=== PATIENT | female | born 1975 | race African-American/Black ===

== ENCOUNTER 2019-05-19 06:18 | Emergency (ER) | payer MEDICAID, SELFPAY ==
[2019-05-19 06:19] VITALS: BP 110/83; PULSE 90; RESP 18; TEMP 36.7; O2SAT 100; BMI 24.2
--- NOTE | 2019-05-19 06:34 | RAD_ITS ---
STUDY: X-RAY - LEFT FOOT CLINICAL: Female, 43 years old. FELL -- C/O PAIN IN ALL TOES TECHNIQUE: 3 view(s) of the foot. COMPARISON: None. FINDINGS: Normal talus, calcaneus, and tarsal bones. Normal visualized subtalar, talonavicular, calcaneocuboid, tarsal and tarsometatarsal articulations. Normal metatarsi. Normal metatarsophalangeal joint of the great toe. Normal tibial and fibular sesamoid bones. Normal interphalangeal joint of the great toe. Normal phalanges of the great toe. Normal second through fifth metatarsophalangeal joints. Normal interphalangeal joints and phalanges of the lesser toes. The soft tissue structures are unremarkable. RAD/Foot min 3 Views IMPRESSION: Normal x-ray examination of the foot. Electronically Signed: Sofía Chang, at 7:18 EDT Tel , Service support ,
--- NOTE | 2019-05-19 06:36 | ED.VIS.LOWEX ---
History of Present Illness Chief Complaint: Lower Extremity Injury Informant: Patient Occurred: Hours - 1 Mechanism/Context: Slip Context: Gradual Onset - a little after the slip/near-fall Timing: Continuous Quality of Pain: Aching Location: left foot Current Severity: Mild Maximum Severity: Moderate Worsened by: walking, although she is able Relieved by: rest/remaining still Associated Symptoms: Negative for: Parasthesia, Weakness, Loss of Funtion Narrative: Slipped on wet grass and then caught herself, when she got to the sidewalk a short time later she noticed that her left foot was hurting. No other injuries. Denies twisting her ankle or having pain there. She states her right foot is bothering her a little but it is more stiff and not necessarily painful. She has been able to ambulate since this injury. Past Medical History - Allergies and Home Meds Allergies/Adverse Reactions: Allergies No Known Allergies Allergy (Verified 05/19/19 06:24) Primary Care Physician: NOT,DEFINED [NON-STAFF] - Past Medical History: None Smoking Status: Current every day smoker Review of Systems Musculoskeletal: Reports: Extremity Pain. Denies: Swelling Skin: Denies: Rash, Wounds Neurological: Denies: Headache, Weakness, Numbness Physical Exam Vital Signs/Narrative: Vital Signs Temp Pulse Resp BP Pulse Ox 05/19/19 06:19 98.1 F 90 18 110/83 H 100 Inital Vital Signs reviewed: Yes - Extremity Exam Left Hip: Negative for: Limited ROM Left Knee: Negative for: Limited ROM Left Ankle: Negative for: Limited ROM - and NT Left Foot: - - tender throughout most of midfoot and metatarsals, mildly. nontender 5th ray. toes nontender. calc NT.. Negative for: Contusion, Deformity, Edema, Hematoma Right Toe: - - NT throughout. Negative for: Contusion, Deformity, Edema, Hematoma General: Well nourished, Well developed, - - Well-appearing, NAD Skin: Normal color, No rash, No Trauma Neurological: Alert, Oriented x3, Cranial nerves II-XII grossly intact, Normal Strength, Normal Sensation Psychological: Normal affect, Normal Mood Diagnostic/Tx/Re-eval - Medical Decision Making On my interpretation, 3 view x-ray of the left foot shows no acute fracture or dislocation. Given this, and the benign symptoms/exam on the right foot, I do not think x-rays of it are necessary. I discussed this with the patient and she was okay with that as well. She was given ibuprofen and appropriate discharge instructions, for supportive care and follow-up. Prior to discharge, she was asking about some type of chronic cyst issue she was having on her left foot, I do not see anything unusual, but she was given information for podiatry that she could follow-up with if desired. She was okay with that information. ED Disposition - Plan for ED Patient: Disposition: Home or Assisted Living Diagnosis: Injury of left foot Instructions: Sprain Foot Referrals: Judie Fang DPM [STAFF PHYSICIAN] - As Needed Additional Instructions: Ibuprofen, ice, and/or Tylenol as needed for pain.
[2019-05-19] MEDS: Ibuprofen 600 MG Tablet PO (07:10)
[2019-05-19 07:12] VITALS: BP 110/83; PULSE 90; RESP 18
== END 2019-05-19 07:14 | disposition home or self-care (01) ==
PROVIDERS: Emergency Provider Emergency Medicine
DX: S99.922A Unspecified injury of left foot, initial encounter (principal); W01.0XXA Fall on same level from slipping, tripping and stumbling without subsequent striking against object, initial encounter; Y93.9 Activity, unspecified; Y92.9 Unspecified place or not applicable; F17.200 Nicotine dependence, unspecified, uncomplicated
CPT/HCPCS: 73630; 99283; J7030; A4216

== ENCOUNTER 2020-05-28 04:35 | Emergency (ER) | payer MEDICAID, SELFPAY ==
[2020-05-28 04:36] VITALS: BP 116/88; PULSE 73; RESP 16; TEMP 36.5; O2SAT 100; BMI 26.7
--- NOTE | 2020-05-28 04:55 | RAD_ITS ---
STUDY: X-RAY - LEFT KNEE REASON FOR EXAM: Female, 44 years old. Patella pain post fall TECHNIQUE: 3 view(s) of the knee. COMPARISON: None. FINDINGS: Normal visualized distal femur. Normal visualized proximal tibia and fibula. Normal proximal tibiofibular articulation. There is mild degenerative arthrosis of the medial femorotibial compartment. Normal lateral femorotibial compartment. Normal patellofemoral articulation. There is no demonstrated joint effusion. Mild thickening of the medial distal femoral and knee joint soft tissue. RAD/Knee 3 Views IMPRESSION: Mild degenerative changes medial femoral tibial joint with joint space narrowing. There is no acute displaced fracture or dislocation. Possible soft tissue injury medial knee joint Electronically Signed: Yissel Pearson MD at 5:26 EDT , Service support ,
--- NOTE | 2020-05-28 05:01 | ED.DCSUM_ITS ---
History of Present Illness Chief Complaint: Lower Extremity Injury Informant: Patient Narrative: Patient is a 44-year-old female who complains of left knee pain. She has no prior medical problems. No previous knee injury. She states that she fell 3 days ago. She was not really having knee pain at that time but over the past 24 hours she started develop pain over her patella. She currently rates the pain as a 7 out of 10. She does not take anything for this. She feels like the knee sometimes does give out on her. She is not had any swelling to the knee. No overlying skin changes. Denies any fevers or chills. No radiating pain up or down the leg. No known aggravating or relieving factors. She denies any loss of sensation or muscle strength. Past Medical History - Allergies and Home Meds Allergies/Adverse Reactions: Allergies No Known Allergies Allergy (Verified 05/19/19 06:24) Primary Care Physician: Care Physician,No Primary [Primary Care Provider] - 3-5 Days if not improving Prior records reviewed: Yes Past Medical History: None Surgical History: no surgical history Smoking Status: Current every day smoker Review of Systems All systems negative except as indicated General: Denies: Chills, Fever, Sweats ENT: Denies: Rhinorrhea, Sore throat Cardiovascular: Denies: Chest pain, Palpitations Respiratory: Denies: Dyspnea, Cough, Dyspnea on exertion Gastrointestinal: Denies: Abdominal pain, Nausea, Vomiting Genitourinary: Denies: Dysuria, Hematuria, Frequency Musculoskeletal: Reports: Extremity Pain. Denies: Neck pain, Back pain, Swelling Skin: Denies: Rash, Wounds Neurological: Denies: Headache, Weakness, Numbness Physical Exam Vital Signs/Narrative: Vital Signs Temp Pulse Resp BP Pulse Ox 05/28/20 04:36 97.7 F L 73 16 116/88 H 100 Inital Vital Signs reviewed: Yes General: Well nourished, Well developed, No Acute Distress Head: Normocephalic, Atraumatic Eyes: Perrl, EOMI ENT: Moist mucous membranes, No rhinorrhea Neck: Supple, Nontender Cardiovascular: Regular rate, Regular rhythm, No murmurs Respiratory: No distress, CTA bilaterally, Chest nontender Abdomen: Soft, Nontender, Nondistended Back: Nontender, Normal Inspection Extremities: No edema, Tenderness - Over the left patella., - - No swelling or overlying skin changes. No joint laxity. Neurovascular intact. 5 out of 5 muscle strength. Skin: Normal color, No rash Neurological: Alert, Oriented x3, Cranial nerves II-XII grossly intact, Normal Strength, Normal Sensation Psychological: Normal affect, Normal Mood Diagnostic/Tx/Re-eval Chest X-Ray - ED: - - Knee x-ray interpreted by myself. No acute fractures, large effusions or dislocations. Very mild arthritis present. Agree with radiologist interpretation. - Medical Decision Making Patient presents to the emergency department for left knee pain. She did have a fall on it 3 days prior but did not recall injuring it at that time. Upon arrival to the emergency department she is ambulatory on it without any obvious gait abnormality. He does not appear in any acute distress. Will check an x- ray. We will treat her symptomatically with a dose of ibuprofen. Patient's x-ray did not reveal any acute traumatic findings. Given her feeling of knee giving out she could potentially have a meniscus or ligament injury although the knee is very stable on my exam. She is going to follow-up with her PCP. Return precautions are reviewed with her including any significant pain with joint movement, swelling or overlying skin changes. She understands and is agreeable this plan. Discharged home in stable condition. Recommend RICE and supportive care otherwise. ED Disposition - Plan for ED Patient: Disposition: Home or Assisted Living Diagnosis: Knee pain, acute Instructions: ED RICE Referrals: Care Physician,No Primary [Primary Care Provider] - 3-5 Days if not improving
[2020-05-28] MEDS: Ibuprofen 600 MG Tablet PO (05:27)
[2020-05-28 05:44] VITALS: BP 110/74; PULSE 72; RESP 16; O2SAT 99
== END 2020-05-28 05:45 | disposition home or self-care (01) ==
PROVIDERS: Emergency Provider Emergency Medicine
DX: M17.12 Unilateral primary osteoarthritis, left knee (principal); F17.200 Nicotine dependence, unspecified, uncomplicated
CPT/HCPCS: 73562; 99284

== ENCOUNTER 2020-05-29 00:17 | Emergency (ER) | payer MEDICAID, SELFPAY ==
[2020-05-28 04:36] VITALS: BMI 26.7
[2020-05-29 00:18] VITALS: BP 127/85; PULSE 87; RESP 16; TEMP 36.4; O2SAT 100; BMI 26.4
[2020-05-29 00:30] VITALS: BP 127/85; PULSE 87; RESP 16; O2SAT 100
--- NOTE | 2020-05-29 00:30 | ED.VIS.GEN ---
History of Present Illness Chief Complaint: Other, Pain/Inj Informant: Patient Narrative: Patient is a 44-year-old female who presents to the emergency department for left upper gum pain. She states this has been going on for the past few weeks but just recently worsened last night. She had all of her teeth pulled at that time. She is supposed to follow-up with her dentist to get dentures. She states that she eats and she feels like food goes up into her gums. She has been on a softer diet. No significant swelling. She denies any sore throat or difficulty swallowing. No chest pain or shortness of breath. No fevers or chills. Not tried taking anything for this. Past Medical History - Allergies and Home Meds Allergies/Adverse Reactions: Allergies No Known Allergies Allergy (Verified 05/19/19 06:24) Primary Care Physician: Care Physician,No Primary [Primary Care Provider] - Prior records reviewed: Yes Surgical History: no surgical history Smoking Status: Current every day smoker Review of Systems All systems negative except as indicated General: Denies: Chills, Fever ENT: Denies: Rhinorrhea, Sore throat Cardiovascular: Denies: Chest pain Respiratory: Denies: Dyspnea, Cough, Dyspnea on exertion Gastrointestinal: Denies: Abdominal pain, Nausea, Vomiting Musculoskeletal: Denies: Neck pain Skin: Denies: Rash, Wounds Neurological: Denies: Headache, Numbness Physical Exam Vital Signs/Narrative: Vital Signs Temp Pulse Resp BP Pulse Ox 05/29/20 00:18 97.5 F L 87 16 127/85 H 100 Inital Vital Signs reviewed: Yes General: Well nourished, Well developed, No Acute Distress Head: Normocephalic, Atraumatic Eyes: Perrl, EOMI ENT: Moist mucous membranes, - - All the teeth have been previously removed. No significant gum swelling, bleeding or inflammation noted. Oropharynx is clear. Uvula midline. No abscess. Neck: Supple, Nontender Cardiovascular: Regular rate, Regular rhythm Respiratory: No distress, - - Symmetrical chest rise bilaterally Abdomen: Nondistended Extremities: - - 5 out of 5 muscle strength throughout. Skin: Normal color, No rash Neurological: Alert, Oriented x3, Cranial nerves II-XII grossly intact Diagnostic/Tx/Re-eval - Medical Decision Making Patient presents to the emergency department for gum pain. She will have her teeth removed and feels like she gets food caught up in her gums. To the emerge department she is in no acute distress. She is a benign physical exam without any evidence of gingival inflammation or abscess/infection. Recommend symptomatic care. I will write a prescription for ibuprofen and she given a first dose here. She can get topical anesthetic medications [id number] as well. She is to follow-up with her dentist as soon as possible. Return precautions are reviewed including any significant swelling, painful swallowing or systemic symptoms. She is agreeable this plan. Discharged home in stable condition. All questions answered. ED Disposition - Plan for ED Patient: Disposition: Home or Assisted Living Diagnosis: Pain in gums Instructions: Understanding Healthy Teeth and Gums Prescriptions: Naproxen [Naprosyn] 500 mg PO BID #20 tablet Transmission Status: Pending to [id number] Referrals: Care Physician,No Primary [Primary Care Provider] - 3-5 Days Additional Instructions: Please follow-up with your dentist as soon as possible.
[2020-05-29] MEDS: Ibuprofen 600 MG Tablet PO (00:33)
== END 2020-05-29 00:40 | disposition home or self-care (01) ==
PROVIDERS: Emergency Provider Emergency Medicine
DX: K08.89 Other specified disorders of teeth and supporting structures (principal); F17.200 Nicotine dependence, unspecified, uncomplicated
CPT/HCPCS: 99284